=== PATIENT | male | born 1955 | race African-American/Black ===

== ENCOUNTER 2016-08-18 19:14 | Emergency (ER) | payer MEDICARE ==
--- NOTE | 2016-08-18 20:06 | ER Document Report ---
ED Medical Screen (RME) - General Chief Complaint: Flank Pain Stated Complaint: RIGHT SIDE PAIN Time Seen by Provider: 08/18/16 20:04 Notes: The patient is a 61-year-old male, past medical history umbilical hernia repair , presents with right flank pain and right lower quadrant abdominal pain, worse when he moves. He said is intermittent over the past 2 days. Denies hematuria , dysuria, nausea, vomiting, diarrhea, constipation or rash. PE: NAD. RLQ tenderness. No CVA tenderness. I have greeted and performed a rapid initial assessment of this patient. A comprehensive ED assessment and evaluation of the patient, analysis of test results and completion of the medical decision making process will be conducted by additional ED providers. TRAVEL OUTSIDE OF THE [place] IN LAST 30 DAYS: No - Related Data Allergies/Adverse Reactions: No Known Allergies Allergy (Unverified 04/13/11 10:34) Past Medical History - Social History Chew tobacco use (# tins/day): No Frequency of alcohol use: on weekends Drug Abuse: Marijuana - Past Medical History Cardiac Medical History: Denies: Hx Coronary Artery Disease, Hx Hypertension Pulmonary Medical History: Denies: Hx Asthma, Hx Bronchitis, Hx COPD, Hx Pneumonia Neurological Medical History: Denies: Hx Cerebrovascular Accident Renal/ Medical History: Denies: Hx Peritoneal Dialysis Musculoskeltal Medical History: Denies Hx Arthritis Past Surgical History: Reports: Hx Abdominal Surgery - navel surgery, Hx Orthopedic Surgery - right hip and leg - Immunizations Hx Diphtheria, Pertussis, Tetanus Vaccination: No Physical Exam - Vital signs Vitals: Temp Pulse Resp BP Pulse Ox 97.7 F 72 20 145/79 H 100 08/18/16 19:20 08/18/16 19:20 08/18/16 19:20 08/18/16 19:20 08/18/16 19:20 Course - Vital Signs Vital signs: Temp Pulse Resp BP Pulse Ox 97.7 F 72 20 145/79 H 100 08/18/16 19:20 08/18/16 19:20 08/18/16 19:20 08/18/16 19:20 08/18/16 19:20
[2016-08-18 20:20] LABS: ABSOLUTE EOSINOPHILS # (AUTO) 0.2 10^3/uL (0.0-0.6); ABSOLUTE LYMPHOCYTES (AUTO) 2.2 10^3/uL (0.5-4.7); ABSOLUTE MONOCYTES (AUTO) 0.6 10^3/uL (0.1-1.4); ABSOLUTE NEUT (AUTO) 4.9 10^3/uL (1.7-8.2); BASOPHILS % (AUTO) 0.6 % (0-2); EOSINOPHILS % (AUTO) 2.3 % (0-6); HEMATOCRIT 39.8 % (37.9-51.0); HGB HCT DIFFERENCE -0.8; LYMPHOCYTES % (AUTO) 28.2 % (13-45); MEAN CORPUSCULAR HEMOGLOBIN 29.9 pg (27.0-33.4); MEAN CORPUSCULAR HGB CONC 32.6 g/dL (32.0-36.0); MEAN CORPUSCULAR VOLUME 92 fl (80-97); MONOCYTES % (AUTO) 7.4 % (3-13); RED BLOOD COUNT 4.33 10^6/uL (4.35-5.55); SEGMENTED NEUTROPHILS % (AUTO) 61.5 % (42-78)
[2016-08-18 20:27] LABS: APPEARANCE,URINE CLEAR; BILIRUBIN,URINE NEGATIVE (NEGATIVE); GLUCOSE, URINE NEGATIVE (NEGATIVE); KETONES,URINE NEGATIVE (NEGATIVE); LEUKOCYTE ESTERASE,URINE NEGATIVE (NEGATIVE); NITRITE,URINE NEGATIVE (NEGATIVE); PROTEIN,URINE NEGATIVE (NEGATIVE)
[2016-08-18 20:38] LABS: ALANINE AMINOTRANSFERASE 20 U/L (21-72); ALBUMIN 4.1 g/dL (3.5-5.0); ALKALINE PHOSPHATASE 106 U/L (38-126); ANION GAP 9 (5-19); ASPARTATE AMINO TRANSFERASE 19 U/L (17-59); BILIRUBIN,DIRECT 0.4 mg/dL (0.0-0.4); BILIRUBIN,TOTAL 0.5 mg/dL (0.2-1.3); BLOOD UREA NITROGEN 10 mg/dL (7-20); CALCIUM 9.6 mg/dL (8.4-10.2); CARBON DIOXIDE 27 mmol/L (22-30); CHLORIDE 106 mmol/L (98-107); CREATINE KINASE 159 U/L (55-170); GLUCOSE 105 mg/dL (75-110); LIPASE 116.4 U/L (23-300); SODIUM 142.2 mmol/L (137-145); TOTAL PROTEIN 7.8 g/dL (6.3-8.2)
[2016-08-18] MEDS ORDERED: CARISOPRODOL 350 MG TABLET PO ONE (21:28)
--- NOTE | 2016-08-18 21:29 | ER Document Report ---
ED Neck/Back Problem - General Mode of Arrival: Ambulatory Information source: Patient TRAVEL OUTSIDE OF THE [place] IN LAST 30 DAYS: No - HPI Patient complains to provider of: Pain, Lower back Associated symptoms: Other - See above <VIVIAN GRANT - Last Filed: 08/18/16 21:55> <STEVEN ROMO - Last Filed: 08/18/16 22:00> - General Chief Complaint: Low Back Pain Stated Complaint: low back pain Time Seen by Provider: 08/18/16 20:04 Notes: Patient is a 61 year old male who presents to the emergency department complaining of low back pain. Patient reports the pain is on either side of his spine and radiates into his flank and down his right leg. Patient states the pain is exacerbated by twisting or the act of standing up. Patient denies recent new activity, breathing difficulty, burning with urination, and nausea. ( VIVIAN GRANT) - Related Data Allergies/Adverse Reactions: No Known Allergies Allergy (Unverified 04/13/11 10:34) Past Medical History - General Information source: Patient - Social History Smoking Status: Current Every Day Smoker Chew tobacco use (# tins/day): No Frequency of alcohol use: on weekends Drug Abuse: Marijuana Family History: None, Reviewed & Not Pertinent Patient has suicidal ideation: No Patient has homicidal ideation: No Past Surgical History: Reports: Hx Abdominal Surgery - navel surgery, Hx Orthopedic Surgery - right hip and leg - Immunizations Hx Diphtheria, Pertussis, Tetanus Vaccination: No Hx Pneumococcal Vaccination: 08/24/12 <VIVIAN GRANT - Last Filed: 08/18/16 21:55> Review of Systems - Review of Systems Constitutional: No symptoms reported EENT: No symptoms reported Cardiovascular: No symptoms reported Respiratory: denies: Other - breathing difficulty Gastrointestinal: denies: Nausea Genitourinary: See HPI, Flank pain. denies: Burning Male Genitourinary: No symptoms reported Musculoskeletal: See HPI, Back pain Skin: No symptoms reported Hematologic/Lymphatic: No symptoms reported Neurological/Psychological: No symptoms reported -: Yes All other systems reviewed and negative <VIVIAN GRANT - Last Filed: 08/18/16 21:55> Physical Exam - Vital signs Interpretation: Normal - General General appearance: Appears well, Alert - HEENT Head: Normocephalic, Atraumatic - Respiratory Respiratory status: No respiratory distress - Back Back: Tender - Para-spinal tenderness to palpation from L3-L5 bilatearlly. Bilateral tenderness to palpation of SI joints - Extremities General upper extremity: Normal inspection, Normal ROM General lower extremity: Normal inspection, Normal ROM - Neurological Neuro grossly intact: Yes Cognition: Normal Orientation: AAOx4 Deja Coma Scale Eye Opening: Spontaneous [place] Coma Scale Verbal: Oriented [place] Coma Scale Motor: Obeys Commands [place] Coma Scale Total: 15 Speech: Normal - Psychological Associated symptoms: Normal affect, Normal mood - Skin Skin Temperature: Warm Skin Moisture: Dry Skin Color: Normal <VIVIAN GRANT - Last Filed: 08/18/16 21:55> Course - Laboratory Result Diagrams: 08/18/16 20:05 08/18/16 20:05 <VIVIAN GRANT - Last Filed: 08/18/16 21:55> - Laboratory Result Diagrams: 08/18/16 20:05 08/18/16 20:05 - Diagnostic Test Radiology reviewed: Reports reviewed <STEVEN ROMO - Last Filed: 08/18/16 22:00> - Re-evaluation Re-evalutation: 08/18/16 21:59 Patient with low back pain that is reproducibly tender to palpation. No acute findings on blood work, urine, CT. Patient will be discharged home with a muscle relaxant and is to follow-up with her doctor. Is full range of motion and strength. He is neurovascularly intact. Understands agrees with plan. Stable for discharge. Return if any worsening or concerning symptoms. (STEVEN ROMO) - Vital Signs Vital signs: Temp Pulse Resp BP Pulse Ox 97.7 F 72 20 145/79 H 100 08/18/16 19:20 08/18/16 19:20 08/18/16 19:20 08/18/16 19:20 08/18/16 19:20 - Laboratory Laboratory results interpreted by me: 08/18/16 08/18/16 08/18/16 20:05 20:05 20:05 RBC 4.33 L Hgb 13.0 L ALT 20 L Urine Urobilinogen 2.0 H Discharge <VIVIAN GRANT - Last Filed: 08/18/16 21:55> <STEVEN ROMO - Last Filed: 08/18/16 22:00> - Discharge Clinical Impression: Low back pain Qualifiers: Chronicity: acute Back pain laterality: bilateral Sciatica presence: without sciatica Qualified Code(s): M54.5 - Low back pain Condition: Stable Disposition: HOME, SELF-CARE Instructions: Low Back Pain ([facility]), Ice Packs ([facility]) Prescriptions: Carisoprodol [Soma] 350 mg PO DAILYP PRN #10 tablet PRN Reason: Forms: Return to Work Referrals: GIRMA DURAN MD [Primary Care Provider] - Follow up in 3-5 days Scribe Attestation: 08/18/16 22:00 I personally performed the services described in the documentation, reviewed and edited the documentation which was dictated to the scribe in my presence, and it accurately records my words and actions. (STEVEN ROMO) Scribe Documentation - Scribe Written by Marko:: marko Rodriguez, 08/18/16, [id number] acting as scribe for :: Michelle <VIVIAN GRANT - Last Filed: 08/18/16 21:55>
--- NOTE | 2016-08-18 21:46 | RADIOLOGY REPORT (SQ) ---
EXAM DESCRIPTION: CT LTD RENAL STONE PROTOCOL ON COMPLETED DATE/TIME: 08/18/2016 8:55 pm REASON FOR STUDY: flank pain COMPARISON: None. TECHNIQUE: CT scan of the abdomen and pelvis performed without intravenous or oral contrast. Images reviewed with lung, soft tissue, and bone windows. Reconstructed coronal and sagittal MPR images revi ewed. All images stored on PACS. All CT scanners at this facility use dose modulation, iterative reconstruction, and/or weight based d osing when appropriate to reduce radiation dose to as low as reasonably achievable (ALARA). [facility]: Dose Right [facility]: CareDose [facility]: Dose Right [facility]: Teradose 4D [facility]: Reclip.It RADIATION DOSE: 15.37mGy. LIMITATIONS: None. FINDINGS: LOWER CHEST: No significant findings. No nodules or infiltrates. NON-CONTRASTED LIVER, SPLEEN, ADRENALS: Evaluation limited by lack of IV contrast. No identified sign ificant masses. PANCREAS: No masses. No peripancreatic inflammatory changes. GALLBLADDER: No identified stones by CT criteria. No inflammatory changes to suggest cholecystitis. RIGHT KIDNEY AND URETER: No suspicious masses. Assessment limited by lack of IV contrast. No signif icant calcifications. No hydronephrosis or hydroureter. LEFT KIDNEY AND URETER: No suspicious masses. Assessment limited by lack of IV contrast. No signifi cant calcifications. No hydronephrosis or hydroureter. AORTA AND RETROPERITONEUM: No aneurysm. No retroperitoneal masses or adenopathy. BOWEL AND PERITONEAL CAVITY: No obvious masses or inflammatory changes. No free fluid. APPENDIX: Normal. PELVIS, BLADDER, AND ABDOMINAL WALL:No abnormal masses. No free fluid. Bladder normal. BONES: No acute findings. Moderate -severe degenerative changes in the lumbar spine. OTHER: No other significant finding. IMPRESSION: NO ACUTE PROCESS IN THE ABDOMEN OR PELVIS. TECHNICAL DOCUMENTATION: JOB ID: [id number] Quality ID # [id number]: Final reports with documentation of one or more dose reduction techniques (e.g., Au tomated exposure control, adjustment of the mA and/or kV according to patient size, use of iterative reconstruction technique) 2010 [employer]- All Rights Reserved
[2016-08-18 22:27] VITALS: BP 132/73
== END 2016-08-18 22:28 | disposition home or self-care (01) ==
LOC: ER 19:14
DX: M54.5 Low back pain (principal); F17.200 Nicotine dependence, unspecified, uncomplicated
CPT/HCPCS: 99284; 36415; 82550; 83690; 85025; 80053; 81001; 76380; A9270; J3490

== ENCOUNTER 2018-10-26 08:23 | Emergency (ER) | payer MEDICARE ==
--- NOTE | 2018-10-26 09:24 | RADIOLOGY REPORT (SQ) ---
EXAM DESCRIPTION: WRIST LEFT 3 VIEWS COMPLETED DATE/TIME: 10/26/2018 8:44 am REASON FOR STUDY: swelling and painful COMPARISON: None. NUMBER OF VIEWS: Three views. TECHNIQUE: AP, lateral, and oblique radiographic images acquired of the left wrist. LIMITATIONS: None. FINDINGS: MINERALIZATION: Normal. BONES: No acute fracture or dislocation. No worrisome bone lesions. Normal alignment. SOFT TISSUES: Soft tissue prominence corresponding to the history of swelling. OTHER: No other significant finding. IMPRESSION: No bony pathology. Soft tissue prominence TECHNICAL DOCUMENTATION: JOB ID: [id number] [employer] [place]- All Rights Reserved Reading location - IP/workstation name: [email or web address]
[2018-10-26] MEDS ORDERED: KETOROLAC TROMETHAMINE INJ/PF 30 MG/1 ML SDV IM ONE (09:27)
[2018-10-26] MEDS ORDERED: OXYCODONE-ACETAMINOPHEN 5-325 MG TABLET PO ONE (09:27)
--- NOTE | 2018-10-26 09:36 | ER Document Report ---
HPI - HPI Time Seen by Provider: 10/26/18 09:20 Pain Level: 5 Context: Patient is a 63-year-old male who presents to the emergency department with a chief complaint of left wrist pain. Patient states he woke up yesterday morning with left wrist pain. Patient reports that this is located around the whole wrist. Patient reports localized swelling. Patient denies injury. Patient states he has been doing yard work but is not aware of any overuse. Patient denies numbness or tingling. Patient reports he is right-hand dominant. Patient states he has not taken anything for the pain but did attempt to ice and elevate last night with very minimal relief. Patient denies recent illness to include fever, chills, redness around the wrist. Past Medical History - General Information source: Patient - Social History Smoking Status: Never Smoker Cigarette use (# per day): No Frequency of alcohol use: None Drug Abuse: None Lives with: Family Family History: None, Reviewed & Not Pertinent - Past Medical History Cardiac Medical History: Reports: None Denies: Hx Coronary Artery Disease, Hx Hypertension Pulmonary Medical History: Reports: None Denies: Hx Asthma, Hx Bronchitis, Hx COPD, Hx Pneumonia EENT Medical History: Reports: None Neurological Medical History: Reports: None. Denies: Hx Cerebrovascular Accident Endocrine Medical History: Reports: None Renal/ Medical History: Reports: None. Denies: Hx Peritoneal Dialysis Malignancy Medical History: Reports None GI Medical History: Reports: None Musculoskeletal Medical History: Reports None, Denies Hx Arthritis Skin Medical History: Reports None Psychiatric Medical History: Reports: None Traumatic Medical History: Reports: None Infectious Medical History: Reports: None Past Surgical History: Reports: Hx Abdominal Surgery - navel surgery, Hx Orthopedic Surgery - right hip and leg - Immunizations Hx Diphtheria, Pertussis, Tetanus Vaccination: No Hx Pneumococcal Vaccination: 08/24/12 Vertical Provider Document - CONSTITUTIONAL Agree With Documented VS: Yes Exam Limitations: No Limitations General Appearance: No Apparent Distress - INFECTION CONTROL TRAVEL OUTSIDE OF THE [place] IN LAST 30 DAYS: No - HEENT HEENT: Atraumatic, Normal ENT Exam, Normocephalic, PERRLA - NECK Neck: Normal Inspection - RESPIRATORY Respiratory: Breath Sounds Normal, No Respiratory Distress - CARDIOVASCULAR Cardiovascular: Regular Rate, Regular Rhythm - GI/ABDOMEN Gastrointestinal: Abdomen Soft, Abdomen Non-Tender - MUSCULOSKELETAL/EXTREMETIES Notes: There is slight edema to the dorsal and ventral aspect of the hand and wrist on the left side. There is no erythema or obvious abscess. 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 Patient has strong left radial pulse. There is no specific point ten derness as the patient seems to be tender throughout the entire wrist and hand. - NEURO Level of Consciousness: Awake, Alert, Appropriate - DERM Integumentary: Warm, Dry Course - Re-evaluation Re-evalutation: 10/26/18 19:41 An Amarjit wrap was applied to the left wrist and hand. I did inform the patient to ice and elevate as this may help with his discomfort. I did inform the patient that if his symptoms do not improve he does need to follow-up with orthopedics. I did refer him to a hand specialist Dr. brewster. Patient verbalizes understanding. I did inform the patient to return the emergency department if he is unable to make a fist, has increase in swelling to the wrist or hand has numbness or tingling or any other concerning signs or symptoms. - Vital Signs Vital signs: Temp Pulse Resp BP Pulse Ox 98.0 F 80 18 148/71 H 96 10/26/18 08:27 10/26/18 08:27 10/26/18 08:27 10/26/18 08:27 10/26/18 08:27 - Diagnostic Test Radiology reviewed: Reports reviewed Radiology results interpreted by me: 10/26/18 10:04 Wrist X-Ray 10/26/18 00:00 IMPRESSION: No bony pathology. Soft tissue prominence Discharge - Discharge Clinical Impression: Left wrist pain Condition: Stable Disposition: HOME, SELF-CARE Additional Instructions: Today you were seen in the emergency department for left wrist pain. Although there was no injury this could be exacerbated by repetitive movements with your occupation or after doing yard work a few days ago. We have placed you in a amarjit wrap. Over the next few days please ice and elevate the rest. If you continue to have discomfort or worsening pain or new symptoms please return to the emergency department. I have referred you to orthopedics if your pain does not improve as you may need a reevaluation. Please return to the emergency department if you develop worsening swelling, worsening pain, inability to move the left wrist, numbness or tingling to the hand or any new or worsening symptoms. Prescriptions: Tramadol HCl [Ultram] 50 mg PO Q6 #15 tablet Forms: Return to Work Referrals: LEN VERNON DO [ACTIVE STAFF] - Follow up as needed JEREMI BAEZ MD [ACTIVE STAFF] - Follow up as needed
[2018-10-26 09:49] VITALS: BP 147/88
== END 2018-10-26 09:52 | disposition home or self-care (01) ==
LOC: ER 08:23
DX: M25.532 Pain in left wrist (principal); M25.432 Effusion, left wrist; R60.0 Localized edema
CPT/HCPCS: 99283; 96372; 73110; J1885; A9270